=== PATIENT | male | born 1970 | race Caucasian/White ===

== ENCOUNTER → 2018-02-26 07:44 | Day surgery (SDC) | payer BC ==
[~2018-02-26 07:44] MED LIST: Acetaminophen TAB* 325 MG ONE; Acetaminophen TAB* 325 MG PO ONE; Acetaminophen TAB* 325 MG PO PRN; Buffered Lidocaine 1% SYRIN* 1 ML/SYRINGE INTRADERM ONE; Bupivacaine 0.25% W/EPI* 10 ML SDV ONE; Dexamethasone IV* 4 MG/ML 1 ML (4 MG) ONE; DiMENhydriNATE IV* 50 MG/ML VIAL IV PUSH PRN; Famotidine IV* 10 MG/ML 2 ML (20 mg) ONE; Gabapentin CAP(*) 300 MG ONE; Gabapentin CAP(*) 300 MG PO ONE; HYDROcodone/ACETAMIN 5-325 MG* 1 TAB ONE; HYDROcodone/ACETAMIN 5-325 MG* 1 TAB PO PRN; HYDROmorphone INJ1* 1 MG/ML SYRINGE IV PRN; HYDROmorphone INJ1* 1 MG/ML SYRINGE ONE; Ketorolac INJ* 30 MG/ML 1 ML VIAL ONE; Lactated Ringers 1000 ML Bag* 1,000 ML IV SCH; Lidocaine 2% PF * 5 ML VIAL ONE; Midazolam* 1 MG/ML 5 ML VIAL (5 MG) ONE; Naloxone* 0.4 MG/ML 1 ML VIAL IV PRN; Ondansetron INJ* 2 MG/ML VIAL IV PRN; PROCHLORPERAZINE INJ 5 MG/ML 2 ML VIAL IV PRN; Propofol* 10 MG/ML 20 ML BTL ONE; Rocuronium* 10 MG/ML VIAL ONE; ceFAZolin 2 GM PREMIX in ORs 2 GM/50 ML BAG IVPB ONE; diPHENhydraMINE IV* 50 MG/ML 1 ml VIAL (BENADRYL) IV PRN; fentaNYL* 50 MCG/ML 2 ML VIAL (100 MCG VIAL) ONE
[2018-02-26] MEDS: fentaNYL* 50 MCG/ML 2 ML VIAL (100 MCG VIAL) IV PRN ×3 (11:12→12:12)
[2018-02-26 12:18] VITALS: BP 144/79
--- NOTE | 2018-02-26 20:18 | OP ---
DATE OF OPERATION: 02/26/18 - SDS DATE OF : 74 SURGEON: Mitch Talbert MD BUN PANNER: KARISSA Vanessa ANESTHESIOLOGIST: Dr. Jacobsen. ANESTHESIA: General with local. PRE-OP DIAGNOSIS: Left inguinal hernia. POST-OP DIAGNOSIS: Left direct inguinal hernia. OPERATIVE PROCEDURE: Total extraperitoneal laparoscopic repair with mesh of a direct left inguinal hernia. ESTIMATED BLOOD LOSS: Minimal. IV FLUIDS: 1 L crystalloid. SPECIMENS: None. DRAINS: None. COMPLICATIONS: None. WOUND CLASSIFICATION: 1. DESCRIPTION OF PROCEDURE: Written informed consent was obtained, the left groin was marked with indelible ink and preoperative antibiotics were administered. The patient was taken to the operating room and placed in the supine position. Sequential compression device and warming blanket were applied. General anesthesia was administered and a Figueroa catheter was inserted. The entire abdomen and both groins were prepped and draped in usual sterile fashion. Time-out verification was completed. Initially, a small transverse incision was made just off the midline below the umbilicus and the anterior rectus sheath on the left side was identified and divided transversally to expose the underlying rectus muscle. This was retracted medially to expose the posterior sheath and this rectorectus space was developed inferiorly, large enough to place the Spacemaker balloon down through the space to the pubic tubercle without difficulty. The balloon was then inflated with about 15 squeezes of the bulb under direct vision of the camera to develop the extraperitoneal space. Once this was complete, the patient was placed in Trendelenburg position, the blunt port was inserted and the extraperitoneal space was insufflated to 12 mmHg. Under direct vision at the midline, two 5-mm ports were placed sequentially below the additional 12-mm blunt port. The pubic tubercle was identified medially as was the portion of the right Nikhil's ligament to assure ourselves of this anatomy. The left Nikhil's ligament was identified working in a medial to lateral direction and it appeared that there was a direct space hernia with containing fat which was partially reduced with the balloon insufflation. We were able to identify the epigastric vessels as they entered the anterior abdominal wall later protected from injury. More laterally, the space was developed using blunt dissection with 2 graspers and the anterior abdominal wall all the way out to the iliac crest was developed. I then identified the peritoneal edge laterally and working medially, it appeared that there was no evidence of an indirect inguinal hernia sac. The peritoneum was identified and dissected back into the posterior abdomen in preparation for the mesh placement. The direct space hernia was completely reduced. Once this was complete, a 10 cm x 15 cm ProGrip Covidien mesh was then folded appropriately and passed into the extraperitoneal space. This was then placed to cover both the direct and indirect spaces with generous overlap across the midline at the pubic tubercle with care to prevent any peritoneum from slipping underneath the mesh. The direct space appeared to be covered nicely. Hemostasis was assured. The mesh was held in place with two graspers as the extraperitoneum was desufflated. Both ports were then removed. The rectus sheath was closed with interrupted 0 Vicryl suture. The skin at all three incisions was approximated with subcuticular 4-0 Vicryl suture. Steri-Strips were applied. The patient tolerated the procedure well and was taken to the recovery room in stable condition. [id number]/[facility] #: [id number] CARLOZ
== END | disposition home or self-care (01) ==
LOC: OR 07:44
PROVIDERS: ATTEND Surgery
DX: K40.90 Unilateral inguinal hernia, without obstruction or gangrene, not specified as recurrent (principal); Z87.891 Personal history of nicotine dependence
CPT/HCPCS: A9270-GY; C1781; J0690; J1100; J1170; J1885; J2250; J2704; J3010